=== PATIENT | female | born 1985 | race Caucasian/White ===

== ENCOUNTER 2019-08-04 19:44 | Emergency (ER) | payer OTHER, SELFPAY ==
[2019-08-04 19:51] VITALS: BP 122/75; PULSE 86; RESP 16; TEMP 37.1; O2SAT 100; BMI 25.7
[2019-08-04 20:02] VITALS: BP 122/75; PULSE 86; RESP 16; TEMP 37.1; O2SAT 100; BMI 25.6
[2019-08-04 20:11] LABS: Apearance,Urine Clear (Clear); Bilirubin,Urine Negative (Negative); Blood, Urine 3+ (Negative); Color,Urine Orange (Yellow); Glucose,Urine (UA) 100 (Negative); Ketones,Urine Negative (Negative); Protein,Urine 1+ (Negative); Specific Gravity, Urine 1.005 (1.005-1.030)
--- NOTE | 2019-08-04 20:11 | HMH.EDUTC ---
[facility] [place] Clinical Impression: UTI (urinary tract infection) Qualifiers: Urinary tract infection type: site unspecified Hematuria presence: with hematuria Qualified Code(s): N39.0 - Urinary tract infection, site not specified Disposition: Home, Self-Care Condition on Discharge: Good Instructions: Trimethoprim/Sulfamethoxazole (Alternative Therapy), Urinary Tract Infection, DI for Urinary Tract Infection (UTI), DI for Nausea -- Adult, Nausea and Vomiting-Adult, Phenazopyridine Additional Instructions: *Increase fluids. Water not Soda or Tea *Start antibiotic immediately and be sure to take as ordered for the FULL length of time although you should start to see improvement over the next 48 hours *Pyridium as needed Remember this medication will turn your urine [place]. This is normal but it will stain what ever it gets on *You should not use Pyridium for more than 48 hours. If so , follow up with your primary physician to review urine culture and ensure that antibiotic is adequate for infection *Be SURE to follow up anytime for new or worsening symptoms with your family doctor. AND in 48 hours for urine culture results with your family doctor, if you do not have a doctor then you may call back to the [facility] for urine culture results and further treatment. We do recommend that you choose and establish care with a Primary Care Physician. AND follow up with them in 10-14 days to repeat UA to ensure infection is resolved and blood no longer present *Be sure to let your PCP know that we sent urine cultures from the [facility] so they can follow up to ensure that you area the on the correct antibiotic Call your doctor office and make appointment for 48 hours (2 days from today) to follow up and get the results of your urine culture and further treatment Take medication as prescribed Follow up with family doctor if no improvement or any worsening of symptoms Straight to ER if any life threatening symptoms Prescriptions: Sulfamethoxazole/Trimethoprim [Bactrim DS tablet] 1 each PO BID 10 Days #20 tab Prescription Printed Promethazine HCl [Phenergan 12.5mg tablet] 12.5 mg PO Q6H PRN #6 tab PRN Reason: Nausea Prescription Printed Phenazopyridine HCl [Pyridium 200mg Tablet] 200 pow PO TID #6 tab Prescription Printed Referrals: Azul Miller PA [Primary Care Provider] - As needed Time of Disposition: 20:39 Medical Decision Making - Kaushik Inquiry Pt receiving controlled substance: No Kaushik was queried for this patient: No Vital Signs: 08/04/19 19:51 08/04/19 20:02 Temperature 98.7 F 98.7 F Temperature Source Oral Oral Pulse Rate [Right Brachial] 86 86 Respiratory Rate 16 16 Blood Pressure [Right Arm] 122/75 122/75 Blood Pressure Mean [Right Arm] 90 90 Blood Pressure Source [Right Arm] Automatic Cuff Automatic Cuff Blood Pressure Position [Right Arm] Sitting Sitting 02 Sat by Pulse Oximetry 100 100 Oxygen Delivery Method Room Air Room Air - Lab Data Lab results reviewed: Yes: I reviewed the patient's lab results. Lab Results 08/04/19 19:52: Urine Color [place], Urine Appearance Clear, Urine pH 5.0, Ur Specific [place] 1.005, Urine Protein 1+, Urine Glucose (UA) 100, Urine Ketones Negative, Urine Blood 3+, Urine Nitrate Positive A, Urine Bilirubin Negative, Urine Urobilinogen 1, Ur Leukocyte Esterase 1+ A Orders (Tests/Meds): ED MEDICATIONS Discontinued Medications Generic Name Dose Route Start Last Admin Trade Name Angelic PRN Reason Stop Dose Admin Ceftriaxone Sodium 1 gm 08/04/19 20:19 08/04/19 20:20 Rocephin 1gm Vial IM 08/04/19 20:20 1 gm ONCE ONE Administration Protocol Lidocaine HCl 0 ml 08/04/19 20:19 08/04/19 20:20 Lidocaine 1% 10ml Mdv IM 08/04/19 20:20 2.1 ml ONCE ONE Administration ORDERS Category Date Time Status Urine Culture Stat Micro 08/04/19 20:10 [place] [facility] [place] - General Stated complaint: Weakness,V&D,Abd Pain,Possible UTI Time Seen by Provid
[2019-08-04 20:12] LABS: UTC Leukocyte Esterase,Urine 1+ (Negative); UTC Nitrate,Urine Positive (Negative); Urobilinogen,Urine 1 EU/dl (0.2)
[2019-08-04 20:45] VITALS: BP 122/75; PULSE 86; RESP 16; TEMP 37.1; O2SAT 100
== END 2019-08-04 20:47 | disposition home or self-care (01) ==
PROVIDERS: Emergency Provider Nurse Practitioner; PCP Nurse Practitioner Family
DX: N30.00 Acute cystitis without hematuria (principal); F41.8 Other specified anxiety disorders
CPT/HCPCS: 81003; 87086; 96372; 99202

== ENCOUNTER 2019-09-29 11:16 | Emergency (ER) | payer OTHER, SELFPAY ==
[2019-09-29 11:17] VITALS: BP 121/82; PULSE 93; RESP 18; TEMP 36.8; O2SAT 98; BMI 26.4
--- NOTE | 2019-09-29 11:47 | HMH.EDGENADL ---
ED Disposition Clinical Impression: Pharyngitis Qualifiers: Pharyngitis/tonsillitis etiology: unspecified etiology Qualified Code(s): J02.9 - Acute pharyngitis, unspecified Disposition: Home, Self-Care Condition on Discharge: Good Instructions: DI for Viral Pharyngitis Additional Instructions: You have been evaluated for sore throat and swollen tonsils. Does not appear to be strep pharyngitis. Dexamethasone should help for the next few days with swelling. Take Tylenol and ibuprofen for pain and fever. Return to the emergency department if you have worsening swelling, shortness of breath, difficulty breathing, difficulty swallowing. Follow-up with your primary care doctor in 1 to 2 days for symptom recheck Referrals: Azul Miller PA [Primary Care Provider] - Time of Disposition: 12:08 - Critical Care Critical Care Time: No Attestation: On 09/29/19, the high probability of a clinically significant, sudden or life threatening deterioration of the following system(s) required my full and direct attention, intervention and personal management. The time I documented below is in addition to time spent performing reported procedures but includes the following listed in this critical care notation. Medical Decision Making - Medical Records Medical records reviewed: Yes: I reviewed the patient's medical records. - Kaushik Inquiry Pt receiving controlled substance: No Vital Signs: 09/29/19 11:17 09/29/19 12:12 Temperature 98.3 F 98.3 F Temperature Source Oral Oral Pulse Rate 93 H Pulse Rate [Radial] 93 H Respiratory Rate 18 18 Blood Pressure 121/82 Blood Pressure [Right Arm] 121/82 Blood Pressure Mean [Right Arm] 95 Blood Pressure Source Automatic Cuff Blood Pressure Source [Right Arm] Automatic Cuff Blood Pressure Position Sitting Blood Pressure Position [Right Arm] Sitting 02 Sat by Pulse Oximetry 98 Oxygen Delivery Method Room Air Room Air - Lab Data Lab Results 09/29/19 11:30: Group A Strep Rapid Negative Orders (Tests/Meds): ED MEDICATIONS Discontinued Medications Generic Name Dose Route Start Last Admin Trade Name Freq PRN Reason Stop Dose Admin Dexamethasone Sodium Phosphate 10 mg 09/29/19 11:43 09/29/19 11:59 Decadron 4mg/Ml 5ml Mdv PO 09/29/19 11:44 10 mg ONCE ONE Administration ORDERS Category Date Time Status Strep Screen Confirmation Stat Micro 09/29/19 11:30 Received Medical Decision Narrative: In summary this is a 34-year-old female presenting to the emergency department with sore throat. She is overall well-appearing on arrival. No acute distress. Afebrile. She is able to swallow, managing her secretions. No wheezing or stridor on exam. The swelling in her posterior oropharynx is uniform, no uvula deviation. Differential diagnoses include pharyngitis, strep pharyngitis, other URI. Plan to obtain strep screen and reassess. Patient given oral Decadron. Negative. Sent for culture. After Decadron patient was stable in the emergency department. Able to tolerate oral fluids without difficulty. I counseled her that this is likely viral upper respiratory infection. She does not have signs or symptoms to indicate more serious infection like epiglottitis, RPA, [employer]. Given return precautions. General Adult HPI - General Chief complaint: Upper Respiratory Infection Stated complaint: sore throat swelling Time Seen by Provider: 09/29/19 11:18 Mode of Arrival: Ambulatory Source of Information: Patient Limitations: No Limitations Description of Symptoms (Recalled from ER Triage Doc. by RN): Sore throat and swelling that started this morning. - History of Present Illness HPI narrative: 34-year-old female presenting to the emergency department with sore throat. Symptoms started this morning when she woke up. Feels like both sides of her throat are swollen. She has pain with swallowing. She felt well yesterday. No current fevers, chills,
[2019-09-29 11:48] LABS: Strep Scrn Group A (Rapid) Negative (Negative)
[2019-09-29 12:12] VITALS: BP 121/82; PULSE 93; RESP 18; TEMP 36.8; O2SAT 98
== END 2019-09-29 12:14 | disposition home or self-care (01) ==
PROVIDERS: Emergency Provider Emergency Medicine; PCP Nurse Practitioner Family
DX: J02.9 Acute pharyngitis, unspecified (principal); F41.8 Other specified anxiety disorders; F17.210 Nicotine dependence, cigarettes, uncomplicated; F11.11 Opioid abuse, in remission
CPT/HCPCS: 87430; 96372; 99282

== ENCOUNTER 2019-10-08 18:30 | Emergency (ER) | payer OTHER, SELFPAY ==
[2019-10-08 18:32] VITALS: BP 134/81; PULSE 103; RESP 17; TEMP 36.7; O2SAT 100; BMI 25.7
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
[2019-10-08 19:35] VITALS: BP 128/72; PULSE 90; RESP 16; TEMP 36.7; O2SAT 100
== END 2019-10-08 19:37 ==
PROVIDERS: Emergency Provider Emergency Medicine; PCP Nurse Practitioner Family
DX: Z00.8 Encounter for other general examination (principal); F41.8 Other specified anxiety disorders; Z79.899 Other long term (current) drug therapy; F17.210 Nicotine dependence, cigarettes, uncomplicated
CPT/HCPCS: 99282

== ENCOUNTER 2019-11-16 18:49 | Emergency (ER) | payer OTHER, SELFPAY ==
[2019-11-16 18:49] VITALS: BP 130/89; PULSE 100; RESP 19; TEMP 37.4; O2SAT 100; BMI 23.8
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
[2019-11-16 19:40] VITALS: BP 121/81; PULSE 79; RESP 18; O2SAT 99
[2019-11-16 20:10] VITALS: BP 112/71; PULSE 72; RESP 16; TEMP 36.8
== END 2019-11-16 20:12 | disposition home or self-care (01) ==
PROVIDERS: Emergency Provider Emergency Medicine; PCP Nurse Practitioner Family
DX: G40.909 Epilepsy, unspecified, not intractable, without status epilepticus (principal); Z91.14 Patient's other noncompliance with medication regimen; F41.8 Other specified anxiety disorders; F17.210 Nicotine dependence, cigarettes, uncomplicated
CPT/HCPCS: 99282

== ENCOUNTER 2019-11-24 15:51 | Emergency (ER) | payer OTHER, SELFPAY ==
[2019-11-24 15:52] VITALS: BP 129/86; PULSE 87; RESP 18; TEMP 37.4; O2SAT 96; BMI 25.7
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
[2019-11-24 17:28] LABS: Microscopic, Urine URINE MICROSCOPIC (MICROSCOPIC)
[2019-11-24 17:30] LABS: Appearance,Urine CLEAR (Clear); Blood, Urine Negative (Negative); Glucose,Urine (UA) Negative (Negative); Ketones,Urine TRACE (Negative); Leukocyte Esterase,Urine 1+ (Negative); Nitrate,Urine Negative (Negative); Protein,Urine TRACE (Negative); Specific Gravity, Urine 1.025 (1.005-1.030); Urobilinogen,Urine 0.2 EU/dl (0.2)
[2019-11-24 17:32] LABS: Urine Pregnancy, HCG Qual. Negative (Negative)
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
[2019-11-24 17:34] LABS: Bilirubin,Urine 1+ (Negative); Color,Urine Dark Yellow (Yellow)
[2019-11-24 17:43] LABS: Amphetamine/Metha Screen,Urine Negative ng/ml (<1000); Bacteria,Urine Trace /lpf; Benzodiazepines Screen,Urine Positive ng/ml (<200)
[2019-11-24 17:44] LABS: Barbiturates Screen,Urine Negative ng/ml (<200); Cannabinoid Screen,Urine Negative ng/ml (<50)
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
[2019-11-24 17:45] LABS: Methadone Screen,Urine Negative ng/ml (<300)
[2019-11-24 17:46] LABS: Opiate Screen,Urine Negative ng/ml (<300)
[2019-11-24 17:47] LABS: Phencyclidine Screen,Urine Negative ng/ml (<25)
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
[2019-11-24 17:57] LABS: Cocaine Screen,Urine Negative ng/ml (<300)
[2019-11-24 18:00] VITALS: BP 121/80; PULSE 80; RESP 17; TEMP 37.2; O2SAT 100
== END 2019-11-24 18:10 | disposition home or self-care (01) ==
PROVIDERS: Emergency Provider Emergency Medicine; PCP Nurse Practitioner Family
DX: Z04.41 Encounter for examination and observation following alleged adult rape (principal); S80.02XA Contusion of left knee, initial encounter; S80.01XA Contusion of right knee, initial encounter; S50.12XA Contusion of left forearm, initial encounter; T76.21XA Adult sexual abuse, suspected, initial encounter; F41.8 Other specified anxiety disorders; Z90.49 Acquired absence of other specified parts of digestive tract; F17.210 Nicotine dependence, cigarettes, uncomplicated; Z79.899 Other long term (current) drug therapy
CPT/HCPCS: 80305; 81001; 81025; 87086; 99282

== ENCOUNTER 2021-05-19 17:54 | Emergency (ER) | payer OTHER, SELFPAY ==
[2021-05-19 18:07] VITALS: BP 0/0; PULSE 0; RESP 0; TEMP -17.7; TEMP 0
== END 2021-05-19 18:08 | disposition left against medical advice (07) ==
LOC: UTC 17:57
PROVIDERS: Emergency Provider Nurse Practitioner Family; PCP Nurse Practitioner Family
DX: Z53.21 Procedure and treatment not carried out due to patient leaving prior to being seen by health care provider (principal); K08.89 Other specified disorders of teeth and supporting structures

== ENCOUNTER 2021-05-19 18:10 | Emergency (ER) | payer OTHER, SELFPAY ==
[2021-05-19 18:10] VITALS: BP 120/83; PULSE 89; RESP 16; TEMP 37.1; O2SAT 97; BMI 27.4
--- NOTE | 2021-05-19 18:48 | [facility].EDDENT ---
ED Disposition Clinical Impression: Infected dental caries Disposition: Home, Self-Care Condition on Discharge: Good Instructions: DI for Dental Pain Prescriptions: Hydrocod/Acet 5/325 mg [[place] 5/325mg tablet] 1 tab PO Q6HP PRN #7 tab PRN Reason: Moderate To Severe Pain Transmission Status: Received by [id number] Amoxicillin/Potassium Clav [Amox-Clav 875-125 mg Tablet] 1 tab PO BID #14 tab Transmission Status: Pending to [facility] Referrals: Amisha Smart APRN [Primary Care Provider] - - Critical Care Critical Care Time: No Attestation: On 05/19/21, the high probability of a clinically significant, sudden or life threatening deterioration of the following system(s) required my full and direct attention, intervention and personal management. The time I documented below is in addition to time spent performing reported procedures but includes the following listed in this critical care notation. Medical Decision Making - Medical Records Medical records reviewed: Yes: I reviewed the patient's medical records. - Kaushik Inquiry Pt receiving controlled substance: Yes Kaushik was queried for this patient: Yes ([id number] ) Reference #:: [id number] Risks and benefits of using a controlled substance: were discussed with pt by me Vital Signs: 05/19/21 18:10 Temperature 98.8 F Temperature Source Oral Pulse Rate [Right Radial] 89 Respiratory Rate 16 Blood Pressure [Right Arm] 120/83 Blood Pressure Mean [Right Arm] 95 Blood Pressure Source [Right Arm] Automatic Cuff Blood Pressure Position [Right Arm] Sitting 02 Sat by Pulse Oximetry 97 Oxygen Delivery Method Room Air Orders (Tests/Meds): ED MEDICATIONS Discontinued Medications Generic Name Dose Route Start Last Admin Trade Name Freq PRN Reason Stop Dose Admin Hydrocodone Bitart/Acetaminophen 2 tab 05/19/21 18:30 Hydrocodone/Apap 5/325 Mg Tablet PO 05/19/21 18:31 ONCE ONE Benzocaine/Butamben/Tetracaine HCl 1 gm 05/19/21 18:46 Tetracaine/Benzocaine/Butamben 56 Gm [place] TP 05/19/21 18:47 ONCE ONE Lidocaine HCl 15 ml 05/19/21 18:46 Lidocaine 2% Viscous [place] 15ml Udc PO 05/19/21 18:47 ONCE ONE Medical Decision Narrative: Is a 36-year-old female presented to the emergency department with some dental pain. Patient does have evidence of infected dental carry. I did explain to the patient that she will need tooth extraction. States that she has an appointment on Saturday for extraction be performed. Patient be discharged short course antibiotics. As well as analgesics. Given strict return precaution. Verbalized understanding. Dental HPI - General Chief complaint: Dental/Oral Stated complaint: toothache Time Seen by Provider: 05/19/21 18:20 Mode of Arrival: Ambulatory Limitations: No Limitations Description of Symptoms (Recalled from ER Triage Doc. by RN): Pt c/o dental pain originating in a lower left back tooth. Pt states that she is currently on antibiotic tx by her dentist. Pt states tooth was d/t be extracted today, but that the procedure was not performed. - History of Present Illness HPI Narrative: 36-year-old female presented to the emergency department with some left lower dental pain. Patient is had this for the last week or so. She is been on antibiotic therapy. She was most of the tooth pulled today, however there was an issue where it could not be pulled. She states that she is having some excruciating pain in her left lower teeth. She is not having any headache or change in vision. No focal weakness. No fevers or chills no chest pain shortness of breath. No abdominal pain or vomiting. - Related Data Home Medications Medication Instructions Recorded Confirmed levothyroxine 25 mcg capsule 75 mcg PO DAILY 07/15/18 11/16/19 buprenorphine 8 mg-naloxone 2 mg 8 mg SUBLINGUAL DAILY #10 tab 07/30/18 11/16/19 sublingual tablet gabapentin 300 mg capsule 800
[2021-05-19 19:19] VITALS: BP 122/84; PULSE 92; RESP 14; TEMP 37; O2SAT 97
== END 2021-05-19 19:19 | disposition home or self-care (01) ==
PROVIDERS: Emergency Provider Emergency Medicine; PCP Nurse Practitioner Family
DX: K02.9 Dental caries, unspecified (principal); F41.8 Other specified anxiety disorders; F17.210 Nicotine dependence, cigarettes, uncomplicated; Z79.899 Other long term (current) drug therapy
CPT/HCPCS: 99281; 99282